=== PATIENT | female | born 1945 | race Caucasian/White ===

== ENCOUNTER 2018-12-26 06:08 | Inpatient (IN) ==
[2018-12-16 13:14] LABS: Appearance,Urine CLEAR; Bacteria,Urine 0 /hpf (0); Bilirubin,Urine NEG (NEG); Color,Urine YELLOW; Culture Indicated,Urine NO; Glucose,Urine (UA) NEGATIVE (NEG); Ketones,Urine NEG (NEG); Leukocyte Esterase,Urine 25 /uL (NEG); Nitrate,Urine NEG (NEG); Protein,Urine NEG (NEG); Specific Gravity,Urine 1.014 (1.000-1.035); Urine Blood 0.03 mg/dL (<0.03); Urine RBC 1 /hpf (0-1); Urine Squamous Epithelial Cell 1 /hpf (0-4); Urine Transitional Epi Cells < 1 /hpf (0-2); Urine WBC 4 /hpf (0-4); Urobilinogen,Urine NEG (NEG)
[2018-12-16 13:38] LABS: INR 1.2 (0.9-1.1); Prothrombin Time 14.8 sec (11.9-14.5)
[2018-12-16 13:41] LABS: Basophils # (Auto) 0 K/mcL (0.0-0.3); Basophils % (Auto) 0.2 % (0.0-2.0); Eosinophils # (Auto) 0.1 K/mcL (0.0-0.7); Eosinophils % (Auto) 2.6 % (0.0-7.0); Granulocytes % (Auto) 67.2 % (38.0-78.0); Hematocrit 43.3 % (36.0-48.0); Hemoglobin 13.7 g/dL (12.0-15.0); Lymphocytes # (Auto) 1.2 K/mcL (1.5-4.8); Mean Cell Volume 86.1 fL (80.0-100.0); Mean Corpuscular HGB Conc 31.6 g/dL (31.0-36.0); Mean Platelet Volume 9.8 fL (7.4-10.4); Monocytes # (Auto) 0.4 K/mcL (0.1-0.9); Platelet Count 197 K/mcL (140-440); RBC 5.04 M/mcL (4.00-5.20); WBC 5.3 K/mcL (4.5-11.0)
[2018-12-16 13:55] LABS: Blood Urea Nitrogen 20 mg/dl (8-23); Calcium 9.5 mg/dl (8.6-10.4); Carbon Dioxide 26 mmol/L (22-30); Chloride 100 mmol/L (96-108); Glomerular Filtration Rate 86; Glucose 112 mg/dL (70-105); Potassium 4.4 mmol/L (3.3-5.1); Sodium 139 mmol/L (133-145)
[~2018-12-26 06:08] MED LIST: 0.9 % SODIUM CHLORIDE 9 ML, KETOROLAC 30 MG, ROPIVACAINE HCL/PF 49.5 ML, EPINEPHrine 0.... IJ SCH; ACETAMINOPHEN 500 MG TABLET PO SCH; CELECOXIB 200 MG CAPSULE PO SCH; PREGABALIN 75 MG CAPSULE PO SCH; ceFAZolin 3 GM in DEXTROSE 5% IN WATER 50 ML IV SCH; oxyCODONE 10 MG TAB.ER.12H PO SCH
[2018-12-26] MEDS ORDERED: SCOPOLAMINE 1 PATCH PATCH TOPICAL ONE (06:50)
[2018-12-26] MEDS ORDERED: GENTAMICIN SULFATE 800 MG/20 ML VIAL IR ONE (07:11)
[2018-12-26] MEDS ORDERED: DEXAMETHASONE 10 MG/ML VIAL IV ONE (07:50)
[2018-12-26] MEDS ORDERED: KETAMINE 10 MG/ML ML IV ONE (07:50)
[2018-12-26] MEDS ORDERED: ONDANSETRON 4 MG/2 ML VIAL IV ONE (07:50)
[2018-12-26] MEDS ORDERED: diphenhydrAMINE 50 MG/ML VIAL IV ONE (07:50)
[2018-12-26] MEDS ORDERED: PROPOFOL 200 MG/20 ML VIAL IV ONE (07:50)
[2018-12-26] MEDS ORDERED: LIDOCAINE HCL/PF 100 MG/5 ML SYRINGE IV ONE (07:50)
[2018-12-26] MEDS ORDERED: MIDAZOLAM 2 MG/2 ML VIAL IV ONE (07:50)
[2018-12-26] MEDS ORDERED: ROPIVACAINE HCL/PF 20 ML VIAL IJ ONE (07:50)
[2018-12-26] MEDS ORDERED: PROMETHAZINE 25 MG/ML VIAL IV PRN (08:51)
[2018-12-26] MEDS ORDERED: IPRATROPIUM/ALBUTEROL 3 ML AMPUL.NEB NEB PRN (08:51)
[2018-12-26] MEDS ORDERED: FLUMAZENIL 0.1 MG/ML ML IV PRN (08:51)
[2018-12-26] MEDS ORDERED: LACTATED RINGERS 250 ML IV PRN (08:51)
[2018-12-26] MEDS ORDERED: ONDANSETRON 4 MG/2 ML VIAL IV PRN ×2 (08:51→09:19)
[2018-12-26] MEDS ORDERED: NALOXONE HCL 0.4 MG/ML VIAL IV PRN (08:51)
[2018-12-26] MEDS ORDERED: diphenhydrAMINE 50 MG/ML VIAL IV PRN (08:51)
[2018-12-26] MEDS ORDERED: HYDROmorphone 2 MG/ML VIAL IV PRN (08:51)
[2018-12-26] MEDS ORDERED: MEPERIDINE 25 MG/ML SYRINGE IV PRN (08:51)
[2018-12-26] MEDS ORDERED: LACTATED RINGERS 1,000 ML IV SCH (09:00)
[2018-12-26] MEDS ORDERED: BISACODYL 10 MG SUPP.RECT PR PRN (09:19)
[2018-12-26] MEDS ORDERED: ACETAMINOPHEN 325 MG TABLET PO PRN (09:19)
[2018-12-26] MEDS ORDERED: POLYETHYLENE GLYCOL 3350 17 GM PACKET PO PRN (09:19)
[2018-12-26] MEDS ORDERED: MAGNESIUM HYDROXIDE 30 ML ORAL.SUSP PO PRN (09:19)
[2018-12-26] MEDS ORDERED: FLEETS ADULT ENEMA PR PRN (09:19)
[2018-12-26] MEDS ORDERED: TRANEXAMIC ACID 1,000 MG/10 ML VIAL IV SCH (09:19)
[2018-12-26] MEDS ORDERED: NON FORMULARY MEDICATION 1 DOSE MISCELL (Aspirin/Acetaminophen/Caffeine [Excedrin Migraine PO PRN (09:23)
--- NOTE | 2018-12-26 09:26 | Brief Operative Note ---
Date of procedure: 12/26/18 Pre-op diagnosis: left knee djd severe Post-op diagnosis: same Procedure: left knee tka Grafts/Implants: Yes Anesthesia: GETA Complications Description: 12/26/18 09:26 none Surgeon: Dragan Chowdhury Director Outcomes: Al Patricia Estimated blood loss (cc): 50 Tourniquet Time (Minutes): 52 Specimens Removed/Pathology: none sent Condition: stable Disposition: PACU
[2018-12-26] MEDS: BENZOCAINE/MENTHOL 1 LOZENGE PO PRN (09:46)
--- NOTE | 2018-12-26 10:09 | XRay Report ---
CLINICAL INFORMATION: Post-Op Total Knee COMPARISON: None. FINDINGS: Total knee prosthesis is anatomically aligned. A few tiny calcific particles in the subpatellar region with a small effusion is noted.. No osseous abnormality. Soft tissue swelling seen - as expected IMPRESSION: Small effusion and a few tiny osseous particles in the subpatellar region of uncertain significance Interpreted and Authenticated by: Sha Lynn 12/26/18
--- NOTE | 2018-12-26 10:30 | Operative Note ---
DATE OF OPERATION: 12/26/2018 PREOPERATIVE DIAGNOSIS: Left knee degenerative arthritis and two of the three compartments was severe. POSTOPERATIVE DIAGNOSIS: Left knee degenerative arthritis and two of the three compartments was severe. PROCEDURE: Left total knee arthroplasty. SURGEON: Dragan Chowdhury M.D. NEONATAL SURGEON: Al Patricia PA-C. The PA's assistance was required for the safe and efficient completion of the entire case. This provider's expertise and technical skill were required throughout the case. The PA assisted with preoperative coordination, intraoperative retraction, wound closure, dressing and splint application, as well as postoperative documentation and care coordination. ANESTHESIA: General LMA anesthesia. COMPLICATIONS: None. IMPLANTS: Implant sizes per nurse's note. TOURNIQUET TIME: Approximately 52 minutes. DESCRIPTION OF PROCEDURE: The patient was brought to the operating room and put to sleep with general LMA anesthesia. Once a timeout was performed, we confirmed the operative site by initials, consent form, and x-ray. Once done, we then confirmed preop antibiotics and tranexamic acid. The patient then had the left leg sterilely draped and prepped with Ioban over the skin. We then made a midline incision. Midvastus approach was performed. A total knee was confirmed as there were two compartments with severe arthritis, patellofemoral and medial compartment. At this point, we proceeded with a total knee arthroplasty. Two pins above and below the knee were placed, center of hip rotation performed. Medial and lateral malleoli, intraarticular pins, and thirty points on the femur and tibia were registered. Once we balanced the knee with the implant, the implants were configured to accommodate her anatomy. Once perfectly aligned, we then brought the robot in, made the bony cuts and removed spurs. We injected the soft tissues and cemented into place the components. This was a size 6 femur, size 5 tibial baseplate with a 9 mm poly insert. A 35 mm oval patella covered her patella the best, and this seemed to fit very nicely. There was no complication. Tourniquet time was 52 minutes. All pins were removed. RBH:kwame Job ID: [id number] Doc ID: [id number] Dragan Chowdhury MD
[2018-12-26] MEDS: 0.45 % SODIUM CHLORIDE 1,000 ML IV SCH ×2 (10:59→21:14)
[2018-12-26] MEDS: KETOROLAC 15 MG/ML VIAL IV SCH ×3 (12:07→23:18)
[2018-12-26] MEDS: HYDROmorphone 2 MG/ML VIAL IV PRN (12:46)
[2018-12-26] MEDS: HYDROcodone/APAP 10/325MG TABLET PO PRN ×2 (12:47→18:31)
[2018-12-26] MEDS: 0.9 % SODIUM CHLORIDE 10 ML SYRINGE IV SCH ×2 (15:47→21:15)
[2018-12-26] MEDS: ceFAZolin 1 GM VIAL IV SCH ×2 (15:47→23:18)
[2018-12-26] MEDS ORDERED: ASPIRIN 81 MG TAB.CHEW PO ONE (18:00)
[2018-12-26] MEDS: NITROFURANTOIN SR 100 MG CAPSULE PO SCH (19:55)
[2018-12-26] MEDS ORDERED: ASPIRIN 325 MG ENTERIC COATED TABLET PO SCH (21:00)
[2018-12-26] MEDS ORDERED: TEMAZEPAM 15 MG CAPSULE PO PRN (21:00)
[2018-12-26] MEDS ORDERED: DULoxetine 30 MG CAPSULE PO SCH (21:00)
[2018-12-26] MEDS ORDERED: SENNOSIDES 1 TABLET PO SCH (21:00)
[2018-12-26] MEDS: DOCUSATE SODIUM 100 MG CAPSULE PO SCH (21:14)
[2018-12-26] MEDS: METHIMAZOLE 5 MG TABLET PO SCH (21:46)
[2018-12-27] MEDS: HYDROcodone/APAP 10/325MG TABLET PO PRN ×5 (00:01→16:03)
[2018-12-27] MEDS: HYDROmorphone 2 MG/ML VIAL IV PRN ×2 (03:16→04:52)
[2018-12-27] MEDS: 0.45 % SODIUM CHLORIDE 1,000 ML IV SCH (05:25)
[2018-12-27] MEDS: KETOROLAC 15 MG/ML VIAL IV SCH ×2 (05:28→12:01)
[2018-12-27] MEDS: 0.9 % SODIUM CHLORIDE 10 ML SYRINGE IV SCH ×2 (05:29→14:02)
--- NOTE | 2018-12-27 07:35 | Orthopedic Progress Note ---
Subjective Patient information: Note initiated : 12/27/18 at 7:34 am Service Date, if different from initiated Date: [] Patient: Ana Laura Herron 73 y/o F admitted on 12/26/18 for Left Walter Medial Uni Knee. Chief Complaint: [] Pt is stable this morning on post operative day 1 without any significant concerns or complaints. Patients vital signs have remained stable. Patients dressing is dry and is grossly intact from a neurovascular and motor standpoint. Patients 10 point ROS is otherwise negative. Objective Vital signs: Vital Signs Temp Pulse Resp BP BP Pulse Ox 12/27/18 03:34 98.3 F 76 18 98/53 94 12/27/18 00:26 91 12/26/18 23:08 98.4 F 79 18 102/62 94 12/26/18 21:00 93 12/26/18 19:34 97.1 F 99 H 18 121/70 93 12/26/18 17:00 95 12/26/18 13:20 94 12/26/18 12:12 109/57 93 12/26/18 11:41 122/71 93 12/26/18 11:11 109/63 92 12/26/18 10:56 116/69 92 12/26/18 10:42 113/66 91 12/26/18 10:27 132/74 96 12/26/18 10:11 97.8 F 133/75 96 12/26/18 10:10 92 12/26/18 09:59 98.3 F 82 17 148/78 99 12/26/18 09:48 82 18 140/77 92 12/26/18 09:38 81 18 140/77 97 12/26/18 09:33 89 17 145/70 90 12/26/18 09:28 91 H 17 145/70 96 12/26/18 09:23 98.7 F 92 H 19 157/88 95 12/26/18 09:20 93 Intake and Output 12/26/18 12/27/18 12/27/18 21:59 05:59 13:59 Intake Total 1845 1000 Output Total 2300 1900 Balance -455 -900 Intake: IV 655 Sodium Chloride 0.45% 1,000 ml 655 @ 100 mls/hr IV .Q10H [facility] Rx#: [id number] Oral 1190 1000 Output: Urine Catheter Amount 1000 Straight 1000 Void Amount 1300 1900 Other: Meal Dinner Percent of Meal Consumed 100% Feeding Ability Independent Urine Appearance Clear Straight Clear Urine Color Bright Yellow Bright Yellow Straight Pale Urine Odor Normal Normal Weight 273 lb Intake & Output: Intake & Output 12/26/18 12/27/18 12/27/18 21:59 05:59 13:59 Intake Total 1845 1000 Output Total 2300 1900 Balance -455 -900 Weight 273 lb Intake: IV 655 Sodium Chloride 0.45% 1,000 ml 655 @ 100 mls/hr IV .Q10H [facility] Rx#: [id number] Oral 1190 1000 Output: Urine Catheter Amount 1000 Straight 1000 Void Amount 1300 1900 Other: Meal Dinner Percent of Meal Consumed 100% Feeding Ability Independent Urine Appearance Clear Straight Clear Urine Color Bright Yellow Bright Yellow Straight Pale Urine Odor Normal Normal Incision: Yes healing Incision clean and dry: Yes Dressing: Yes clean Weight bearing status: full Neurological exam IM: Yes oriented X3, Yes motor sensory intact, Yes neurovascular intact Extremities exam IM: Yes Foot pink and warm, Yes neurovascular intact - Labs CBC & BMP: 12/27/18 04:21 12/16/18 11:36 Labs: Orthopedic Labs 12/16/18 11:36 PT 14.8 H INR 1.2 H APTT 38 H 12/27/18 12/16/18 04:21 11:36 Hgb 13.7 Hct 34.2 L 43.3 Assessment and Plan (1) Hx of total knee arthroplasty The patient has been educated regarding dressing care, Physical Therapy recommendations, home exercises, restrictions, and follow up appointments. The patient has had all necessary DME prescribed. The patient has remained relatively stable during their hospital course. Status: Acute
--- NOTE | 2018-12-27 07:38 | Discharge Summary ---
Ortho Discharge - TKA - Patient Instructions Diet: Regular Diet Activity: activity as tolerated, weight bearing as tolerated Total Knee Protocol: For Total Knee: Start ROM BERNIE with stationary bike or rocking chair. Work on gaining full extension of knee. Posterior dislocation precautions provided. Hip abductor strengthening and gait training instructions provided. Apply Cryocuff as instructed. Dressing Care: May shower in 2 days, Aquacel Ag - leave on for 5 days - Problem Maintenance (1) Hx of total knee arthroplasty Status: Acute - Follow Up Plan Follow Up Appointments: Dragan Chowdhury MD [Physician] - 01/10/19 9:20 am Disposition: Home, Self-Care Prognosis: Good Rehab Potential: Good I certify that the patient requires SNF services: No Overall status at discharge: patient is progressing back to baseline - Orders For Discharge Prescriptions: Docusate Sodium [Colace] 100 mg PO BID #60 cap HYDROcodone/APAP 10/325MG [[place] 10-325Mg] 1 - 2 tab PO Q4HP PRN #75 tab PRN Reason: Pain Level 3-6
[2018-12-27] MEDS: DOCUSATE SODIUM 100 MG CAPSULE PO SCH (08:33)
[2018-12-27] MEDS: NITROFURANTOIN SR 100 MG CAPSULE PO SCH (08:35)
[2018-12-27] MEDS ORDERED: METOPROLOL SUCCINATE 25 MG TAB.XL.24H PO SCH (09:00)
[2018-12-27] MEDS ORDERED: MULTIVIT,THER IRON,CA,FA & MIN 1 TABLET PO SCH (09:00)
[2018-12-27] MEDS: METHIMAZOLE 5 MG TABLET PO SCH (09:41)
[2018-12-27] MEDS: BENZOCAINE/MENTHOL 1 LOZENGE PO PRN ×3 (11:00→16:03)
[2018-12-27] MEDS ORDERED: APIXABAN 5 MG TABLET PO SCH (21:00)
== END 2018-12-27 16:15 | disposition home or self-care (01) | DRG 470 ==
LOC: SUR 06:08 → MEDSUR 10:10
PROVIDERS: ADMIT Orthopaedic Surgery; ATTEND Orthopaedic Surgery

== ENCOUNTER 2023-07-31 23:31 | Inpatient (IN) ==
[2023-07-31] MEDS ORDERED: IOPAMIDOL 100 ML BOTTLE IV ONE ×2 (23:32)
[2023-07-31] MEDS ORDERED: DEXAMETHASONE 10 MG/ML VIAL IV ONE (23:37)
[2023-08-01] MEDS ORDERED: IPRATROPIUM/ALBUTEROL 3 ML AMPUL.NEB NEB ONE (00:30)
[2023-08-01 00:37] LABS: Basophils # (Auto) 0.01 K/mcL (0.00-0.30); Basophils % (Auto) 0.2 % (0.0-2.0); Eosinophils # (Auto) 0.12 K/mcL (0.00-0.70); Eosinophils % (Auto) 2.8 % (0.0-7.0); Hematocrit 48.6 % (34.1-44.9); Lymphocytes # (Auto) 1.33 K/mcL (1.50-4.80); Lymphocytes % (Auto) 30.6 % (15.5-49.0); Mean Corpuscular HGB Conc 30.9 g/dL (31.0-36.0); Mean Platelet Volume 10.1 fL (8.8-12.5); Monocytes # (Auto) 0.33 K/mcL (0.10-0.90); Monocytes % (Auto) 7.6 % (1.0-12.0); Neutrophils % (Auto) 58.6 % (38.0-78.0); Platelet Count 153 K/mcL (140-440); RBC 5.28 M/mcL (3.59-5.38); Red Cell Distribution Width 13.1 % (11.5-14.5); WBC 4.4 K/mcL (4.5-11.0)
[2023-08-01 01:10] LABS: proBNP 73.1 pg/mL (<450.0)
[2023-08-01] MEDS ORDERED: ALBUTEROL SULFATE 2.5 MG/3 ML NEBULIZER NEB ONE (01:16)
[2023-08-01] MEDS ORDERED: ACETAMINOPHEN 325 MG TABLET PO ONE (01:26)
[2023-08-01 10:07] LABS: ALT/SGPT < 5 U/L (<40); AST/SGOT 19 U/L (<32); Albumin 4.2 gm/dL (3.2-5.2); Albumin/Globulin Ratio 1.3 (1.0-2.3); Alkaline Phosphatase 100 U/L (39-117); Bilirubin,Direct < 0.2 mg/dL (0-0.3); Bilirubin,Total 0.3 mg/dL (0.1-1.0); Blood Urea Nitrogen 18 mg/dL (8-23); Calcium 9.1 mg/dL (8.6-10.4); Carbon Dioxide 25 mmol/L (22-30); Chloride 102 mmol/L (96-108); Globulin 3.3 gm/dL (2.2-3.7); Glomerular Filtration Rate 83; Glucose 291 mg/dL (70-105); Lactate Dehydrogenase 144 U/L (135-225); Phosphorous 3.1 mg/dL (2.5-4.5); Triglycerides 80 mg/dL (<150); Uric Acid 5.6 mg/dL (2.5-8.0)
[2023-08-01 10:07] LABS: C-Reactive Protein 0.99 mg/dL (0.03-0.80)
[2023-08-01] MEDS ORDERED: IPRATROPIUM/ALBUTEROL 3 ML AMPUL.NEB NEB PRN (10:29)
[2023-08-01] MEDS ORDERED: DEXTROSE 50% 50 ML VIAL IV PRN (10:29)
[2023-08-01] MEDS ORDERED: POLYETHYLENE GLYCOL 3350 17 GM PACKET PO PRN (10:29)
[2023-08-01] MEDS ORDERED: SENNOSIDES 1 TABLET PO PRN (10:29)
[2023-08-01] MEDS ORDERED: MAGNESIUM SULFATE 2 GM/50 ML BAG IV PRN (10:29)
[2023-08-01] MEDS ORDERED: ONDANSETRON 4 MG/2 ML VIAL IV PRN (10:29)
[2023-08-01] MEDS ORDERED: DEXTROSE 31 GM ORAL.SUSP PO PRN (10:29)
[2023-08-01] MEDS ORDERED: POTASSIUM CHLORIDE 40 MEQ in DEXTROSE 5% IN WATER 500 ML IV PRN (10:29)
[2023-08-01] MEDS ORDERED: ACETAMINOPHEN 325 MG TABLET PO PRN (10:29)
[2023-08-01] MEDS ORDERED: POTASSIUM CHLORIDE 20 MEQ TABLET PO PRN ×2 (10:29)
[2023-08-01] MEDS ORDERED: ASPIRIN ACETAMINOPHEN CAFFEINE PO PRN (10:38)
[2023-08-01] MEDS: BUDESONIDE 0.5 MG/2 ML AMPUL.NEB NEB SCH ×2 (10:54→19:17)
[2023-08-01] MEDS: IPRATROPIUM/ALBUTEROL 3 ML AMPUL.NEB NEB SCH ×2 (10:54→19:17)
[2023-08-01 11:12] LABS: Band Neutrophils % 3 % (0-10); Lymphocytes % 12 % (15-49); Monocytes % (Manual) 3 % (1-12); Platelet Estimate INCREASED (Normal); RBC Morphology NORMAL (Normal); Reactive Lymphocytes 5 % (0-2); Segmented Neutrophils % 77 % (38-78)
[2023-08-01] MEDS: AZITHROMYCIN 250 MG TABLET PO SCH (11:13)
[2023-08-01] MEDS: INSULIN LISPRO 1 UNIT/0.01 ML UNIT SQ SCH ×3 (11:26→21:33)
[2023-08-01 11:36] LABS: Hemoglobin A1C 7.3 % Hgb (4.0-6.0)
[2023-08-01] MEDS: 0.9 % SODIUM CHLORIDE 10 ML SYRINGE IV SCH ×2 (13:09→21:35)
[2023-08-01] MEDS ORDERED: methylPREDNISolone SOD SUCC 125 MG/2 ML VIAL IV SCH (14:00)
[2023-08-01] MEDS: HYDROcodone/APAP 10/325MG TABLET PO SCH ×2 (15:52→21:33)
[2023-08-01] MEDS: ENOXAPARIN 40 MG/0.4 ML SYRINGE SQ SCH (21:33)
[2023-08-01] MEDS: DOCUSATE SODIUM 100 MG CAPSULE PO SCH (21:33)
[2023-08-01] MEDS: METHIMAZOLE 10 MG TABLET PO SCH (21:34)
[2023-08-01] MEDS ORDERED: predniSONE 20 MG TABLET ONE (22:03)
[2023-08-01] MEDS: predniSONE 20 MG TABLET PO SCH (22:15)
[2023-08-02] MEDS: IPRATROPIUM/ALBUTEROL 3 ML AMPUL.NEB NEB SCH ×4 (01:49→18:59)
[2023-08-02] MEDS: 0.9 % SODIUM CHLORIDE 10 ML SYRINGE IV SCH ×3 (05:40→21:17)
[2023-08-02 06:53] LABS: ALT/SGPT < 5 U/L (<40); AST/SGOT 25 U/L (<32); Albumin 3.8 gm/dL (3.2-5.2); Albumin/Globulin Ratio 1.4 (1.0-2.3); Alkaline Phosphatase 85 U/L (39-117); Bilirubin,Direct < 0.2 mg/dL (0-0.3); Bilirubin,Total 0.4 mg/dL (0.1-1.0); Blood Urea Nitrogen 20 mg/dL (8-23); Carbon Dioxide 21 mmol/L (22-30); Chloride 105 mmol/L (96-108); Globulin 2.8 gm/dL (2.2-3.7); Glomerular Filtration Rate 87; Glucose 205 mg/dL (70-105); Lactate Dehydrogenase 238 U/L (135-225); Triglycerides 124 mg/dL (<150); Uric Acid 5.1 mg/dL (2.5-8.0)
[2023-08-02 07:22] LABS: Basophils # (Auto) 0 K/mcL (0.00-0.30); Basophils % (Auto) 0 % (0.0-2.0); Eosinophils # (Auto) 0 K/mcL (0.00-0.70); Eosinophils % (Auto) 0 % (0.0-7.0); Hemoglobin 13.6 g/dL (11.2-15.7); Lymphocytes # (Auto) 0.74 K/mcL (1.50-4.80); Mean Cell Volume 92.4 fL (80.0-100.0); Mean Corpuscular HGB Conc 30.9 g/dL (31.0-36.0); Mean Platelet Volume 10.5 fL (8.8-12.5); Monocytes # (Auto) 0.25 K/mcL (0.10-0.90); Neutrophils % (Auto) 72.1 % (38.0-78.0); Platelet Count 157 K/mcL (140-440); RBC 4.76 M/mcL (3.59-5.38); Red Cell Distribution Width 12.9 % (11.5-14.5); WBC 3.6 K/mcL (4.5-11.0)
[2023-08-02] MEDS: BUDESONIDE 0.5 MG/2 ML AMPUL.NEB NEB SCH ×2 (07:35→19:00)
[2023-08-02 07:43] LABS: Lymphocytes % (Auto) 20.6 % (15.5-49.0)
[2023-08-02] MEDS: INSULIN LISPRO 1 UNIT/0.01 ML UNIT SQ SCH ×4 (08:08→21:16)
[2023-08-02] MEDS: predniSONE 20 MG TABLET PO SCH ×3 (08:17→22:14)
[2023-08-02] MEDS ORDERED: ASPIRIN ACETAMINOPHEN CAFFEINE PO PRN (09:45)
[2023-08-02] MEDS ORDERED: PNEUMOCOCCAL 23-VAL P-SAC VAC 0.5 ML SYRINGE IM ONE ×2 (10:00→10:15)
[2023-08-02] MEDS ORDERED: FLUZONE HD QS2023-24/PF 240 MCG/0.7 ML SYRINGE IM ONE (10:00)
[2023-08-02] MEDS: ENOXAPARIN 40 MG/0.4 ML SYRINGE SQ SCH ×2 (10:06→21:16)
[2023-08-02] MEDS: METOPROLOL SUCCINATE 25 MG TAB.XL.24H PO SCH (10:06)
[2023-08-02] MEDS: DULoxetine 30 MG CAPSULE PO SCH (10:06)
[2023-08-02] MEDS: DOCUSATE SODIUM 100 MG CAPSULE PO SCH ×2 (10:06→21:16)
[2023-08-02] MEDS: HYDROcodone/APAP 10/325MG TABLET PO SCH ×3 (10:07→21:16)
[2023-08-02] MEDS: AZITHROMYCIN 250 MG TABLET PO SCH (10:07)
[2023-08-02] MEDS: METHIMAZOLE 10 MG TABLET PO SCH ×2 (10:57→21:17)
[2023-08-03] MEDS: 0.9 % SODIUM CHLORIDE 10 ML SYRINGE IV SCH ×2 (05:09→12:55)
[2023-08-03] MEDS: predniSONE 20 MG TABLET PO SCH (05:11)
[2023-08-03 07:29] LABS: Blood Urea Nitrogen 25 mg/dL (8-23); Calcium 8.8 mg/dL (8.6-10.4); Carbon Dioxide 24 mmol/L (22-30); Chloride 106 mmol/L (96-108); Glomerular Filtration Rate 83; Glucose 198 mg/dL (70-105)
[2023-08-03] MEDS: INSULIN LISPRO 1 UNIT/0.01 ML UNIT SQ SCH ×2 (07:37→11:50)
[2023-08-03] MEDS: BUDESONIDE 0.5 MG/2 ML AMPUL.NEB NEB SCH (08:00)
[2023-08-03] MEDS: AZITHROMYCIN 250 MG TABLET PO SCH (08:16)
[2023-08-03] MEDS: METOPROLOL SUCCINATE 25 MG TAB.XL.24H PO SCH (08:16)
[2023-08-03] MEDS: DOCUSATE SODIUM 100 MG CAPSULE PO SCH (08:16)
[2023-08-03] MEDS: HYDROcodone/APAP 10/325MG TABLET PO SCH (08:16)
[2023-08-03] MEDS: DULoxetine 30 MG CAPSULE PO SCH (08:16)
[2023-08-03] MEDS: ENOXAPARIN 40 MG/0.4 ML SYRINGE SQ SCH (08:16)
[2023-08-03] MEDS: METHIMAZOLE 10 MG TABLET PO SCH (08:17)
[2023-08-03] MEDS ORDERED: predniSONE 20 MG TABLET PO SCH (17:30)
== END 2023-08-03 14:09 | disposition home or self-care (01) | DRG 189 ==
LOC: ED 23:31 → MEDSUR 08-01 05:20
PROVIDERS: ADMIT Internal Medicine; ATTEND Internal Medicine

== ENCOUNTER 2024-10-02 05:33 | Observation (INO) ==
[2024-10-02] MEDS: methylPREDNISolone SOD SUCC 125 MG/2 ML VIAL IV ONE (05:59)
[2024-10-02] MEDS: IPRATROPIUM/ALBUTEROL 3 ML AMPUL.NEB NEB ONE ×2 (06:10→11:00)
[2024-10-02 06:11] LABS: Basophils # (Auto) 0.01 K/mcL (0.00-0.30); Basophils % (Auto) 0.1 % (0.0-2.0); Eosinophils # (Auto) 0.14 K/mcL (0.00-0.70); Eosinophils % (Auto) 1.9 % (0.0-7.0); Hematocrit 46.1 % (34.1-44.9); Hemoglobin 13.9 g/dL (11.2-15.7); Lymphocytes # (Auto) 1.02 K/mcL (1.50-4.80); Lymphocytes % (Auto) 13.9 % (15.5-49.0); Mean Cell Volume 93.7 fL (80.0-100.0); Mean Corpuscular HGB Conc 30.2 g/dL (31.0-36.0); Mean Platelet Volume 10.5 fL (8.8-12.5); Monocytes # (Auto) 0.47 K/mcL (0.10-0.90); Monocytes % (Auto) 6.4 % (1.0-12.0); Neutrophils % (Auto) 77.4 % (38.0-78.0); Platelet Count 172 K/mcL (140-440); RBC 4.92 M/mcL (3.59-5.38); Red Cell Distribution Width 13.2 % (11.5-14.5); WBC 7.3 K/mcL (4.5-11.0)
[2024-10-02 06:35] LABS: Blood Urea Nitrogen 30 mg/dL (8-23); Calcium 9.4 mg/dL (8.6-10.4); Carbon Dioxide 26 mmol/L (22-30); Chloride 101 mmol/L (96-108); Glomerular Filtration Rate 82; Glucose 207 mg/dL (70-105); Potassium 4.1 mmol/L (3.3-5.1); Sodium 139 mmol/L (133-145); proBNP 90.9 pg/mL (<450.0)
[2024-10-02 06:47] LABS: Prothrombin Time 13.6 sec (11.9-14.5)
[2024-10-02] MEDS: FUROSEMIDE 40 MG/4 ML VIAL IV ONE (07:22)
[2024-10-02] MEDS: FUROSEMIDE 20 MG/2 ML VIAL IV ONE (07:22)
[2024-10-02] MEDS ORDERED: DEXTROSE 31 GM ORAL.SUSP PO PRN (13:33)
[2024-10-02] MEDS ORDERED: IPRATROPIUM/ALBUTEROL 3 ML AMPUL.NEB NEB PRN (13:33)
[2024-10-02] MEDS ORDERED: DEXTROSE 50% 50 ML VIAL IV PRN (13:33)
[2024-10-02] MEDS ORDERED: ACETAMINOPHEN 325 MG TABLET PO PRN (13:33)
[2024-10-02] MEDS ORDERED: ONDANSETRON 4 MG/2 ML VIAL IV PRN (13:33)
[2024-10-02] MEDS: HYDROcodone/APAP 10/325MG TABLET PO PRN (14:43)
[2024-10-02] MEDS: 0.9 % SODIUM CHLORIDE 10 ML SYRINGE IV SCH (14:45)
[2024-10-02] MEDS: FUROSEMIDE 40 MG/4 ML VIAL IV SCH (17:28)
[2024-10-02] MEDS: INSULIN LISPRO 1 UNIT/0.01 ML UNIT SQ SCH (17:34)
[2024-10-02] MEDS: DOCUSATE SODIUM 100 MG CAPSULE PO SCH (21:50)
[2024-10-02] MEDS: SENNOSIDES 1 TABLET PO SCH (21:50)
[2024-10-03 06:34] LABS: ALT/SGPT 11 U/L (<40); AST/SGOT 17 U/L (<32); Albumin 3.9 gm/dL (3.2-5.2); Albumin/Globulin Ratio 1.2 (1.0-2.3); Alkaline Phosphatase 94 U/L (39-117); Bilirubin,Direct 0.2 mg/dL (<0.3); Bilirubin,Total 0.5 mg/dL (0.1-1.0); Blood Urea Nitrogen 26 mg/dL (8-23); Calcium 9.1 mg/dL (8.6-10.4); Carbon Dioxide 29 mmol/L (22-30); Chloride 101 mmol/L (96-108); Globulin 3.2 gm/dL (2.2-3.7); Glomerular Filtration Rate 82; Glucose 185 mg/dL (70-105); Lactate Dehydrogenase 119 U/L (135-225); Phosphorous 3.9 mg/dL (2.5-4.5); Potassium 4.1 mmol/L (3.3-5.1); Sodium 139 mmol/L (133-145); Triglycerides 104 mg/dL (<150); Uric Acid 7.1 mg/dL (2.5-8.0)
[2024-10-03 08:20] LABS: Estimated Average Glucose(eAG) 192 mg/dL; Hemoglobin A1C 8.3 % Hgb (4.0-6.0)
[2024-10-03] MEDS ORDERED: METHIMAZOLE 5 MG TABLET PO SCH (09:00)
[2024-10-03] MEDS: FUROSEMIDE 40 MG/4 ML VIAL IV ONE (09:29)
[2024-10-03 12:05] VITALS: TEMP 98.2; O2SAT 92
[2024-10-03] MEDS ORDERED: METOPROLOL SUCCINATE 25 MG TAB.XL.24H PO SCH (21:00)
[2024-10-03] MEDS ORDERED: ENOXAPARIN 40 MG/0.4 ML SYRINGE SQ SCH (21:00)
[2024-10-03] MEDS ORDERED: DULoxetine 30 MG CAPSULE PO SCH (21:00)
== END 2024-10-03 15:07 | disposition home or self-care (01) ==
LOC: ED 05:33 → MEDSUR 05:33
PROVIDERS: ADMIT Internal Medicine; ATTEND Internal Medicine

== ENCOUNTER 2024-11-08 18:08 | Inpatient (IN) ==
[2024-11-08] MEDS: methylPREDNISolone SOD SUCC 125 MG/2 ML VIAL IV ONE (18:48)
[2024-11-08] MEDS: IPRATROPIUM/ALBUTEROL 3 ML AMPUL.NEB NEB ONE ×2 (19:05→22:54)
[2024-11-08 19:10] LABS: Basophils # (Auto) 0.01 K/mcL (0.00-0.30); Basophils % (Auto) 0.1 % (0.0-2.0); Eosinophils # (Auto) 0.04 K/mcL (0.00-0.70); Eosinophils % (Auto) 0.5 % (0.0-7.0); Hematocrit 47.4 % (34.1-44.9); Hemoglobin 14.5 g/dL (11.2-15.7); Lymphocytes # (Auto) 0.92 K/mcL (1.50-4.80); Lymphocytes % (Auto) 11.1 % (15.5-49.0); Mean Cell Volume 92.8 fL (80.0-100.0); Mean Corpuscular HGB Conc 30.6 g/dL (31.0-36.0); Mean Platelet Volume 10.8 fL (8.8-12.5); Monocytes # (Auto) 0.84 K/mcL (0.10-0.90); Monocytes % (Auto) 10.1 % (1.0-12.0); Neutrophils % (Auto) 78.1 % (38.0-78.0); Platelet Count 191 K/mcL (140-440); RBC 5.11 M/mcL (3.59-5.38); Red Cell Distribution Width 13.2 % (11.5-14.5); WBC 8.3 K/mcL (4.5-11.0)
[2024-11-08 19:34] LABS: Blood Urea Nitrogen 27 mg/dL (8-23); Calcium 9.5 mg/dL (8.6-10.4); Carbon Dioxide 23 mmol/L (22-30); Chloride 102 mmol/L (96-108); Glomerular Filtration Rate 60; Glucose 184 mg/dL (70-105); Potassium 3.9 mmol/L (3.3-5.1); Sodium 142 mmol/L (133-145)
[2024-11-08] MEDS: FUROSEMIDE 40 MG/4 ML VIAL IV ONE (19:38)
[2024-11-08] MEDS: LORazepam 0.5 MG TABLET PO ONE (20:37)
[2024-11-08] MEDS ORDERED: MAGNESIUM SULFATE 2 GM/50 ML BAG IV PRN (21:43)
[2024-11-08] MEDS ORDERED: POTASSIUM CHLORIDE 40 MEQ in DEXTROSE 5% IN WATER 500 ML IV PRN (21:43)
[2024-11-08] MEDS ORDERED: POTASSIUM CHLORIDE 20 MEQ TABLET PO PRN ×2 (21:43)
[2024-11-08] MEDS ORDERED: ONDANSETRON 4 MG/2 ML VIAL IV PRN (21:43)
[2024-11-08] MEDS ORDERED: METOCLOPRAMIDE 10 MG/2 ML VIAL IV PRN (21:43)
[2024-11-08] MEDS ORDERED: POLYETHYLENE GLYCOL 3350 17 GM PACKET PO PRN (21:43)
[2024-11-08] MEDS ORDERED: DEXTROSE 50% 50 ML VIAL IV PRN (21:43)
[2024-11-08] MEDS ORDERED: DEXTROSE 31 GM ORAL.SUSP PO PRN (21:43)
[2024-11-08] MEDS ORDERED: SENNOSIDES 1 TABLET PO PRN (21:43)
[2024-11-08] MEDS: DOCUSATE SODIUM 100 MG CAPSULE PO SCH (22:08)
[2024-11-08] MEDS: INSULIN LISPRO 1 UNIT/0.01 ML UNIT SQ SCH (22:24)
[2024-11-08] MEDS: IPRATROPIUM/ALBUTEROL 3 ML AMPUL.NEB NEB SCH (22:35)
[2024-11-08] MEDS: BUDESONIDE 0.5 MG/2 ML AMPUL.NEB NEB SCH (22:35)
[2024-11-08] MEDS: INSULIN LISPRO 1 UNIT/0.01 ML UNIT SQ ONE (22:40)
[2024-11-08] MEDS: cefTRIAXone 1 GM VIAL IV SCH (22:53)
[2024-11-08] MEDS: methylPREDNISolone SOD SUCC 125 MG/2 ML VIAL IV SCH (22:53)
[2024-11-08] MEDS: ENOXAPARIN 40 MG/0.4 ML SYRINGE SQ SCH (22:54)
[2024-11-08] MEDS: 0.9 % SODIUM CHLORIDE 10 ML SYRINGE IV SCH (22:54)
[2024-11-08] MEDS: BUDESONIDE 0.5 MG/2 ML AMPUL.NEB ONE (22:54)
[2024-11-08] MEDS: methylPREDNISolone SOD SUCC 125 MG/2 ML VIAL ONE (22:55)
[2024-11-08] MEDS: cefTRIAXone 1 GM VIAL ONE (22:55)
[2024-11-08] MEDS: ENOXAPARIN 40 MG/0.4 ML SYRINGE ONE (22:55)
[2024-11-09] MEDS: ACETAMINOPHEN 325 MG TABLET PO PRN (01:15)
[2024-11-09] MEDS: ACETAMINOPHEN 325 MG TABLET PO ONE (02:02)
[2024-11-09] MEDS: IPRATROPIUM/ALBUTEROL 3 ML AMPUL.NEB NEB ONE (03:12)
[2024-11-09] MEDS: methylPREDNISolone SOD SUCC 125 MG/2 ML VIAL ONE (04:32)
[2024-11-09 06:15] LABS: ALT/SGPT 17 U/L (<40); AST/SGOT 22 U/L (<32); Albumin 3.8 gm/dL (3.2-5.2); Albumin/Globulin Ratio 1.2 (1.0-2.3); Alkaline Phosphatase 91 U/L (39-117); Bilirubin,Direct < 0.2 mg/dL (0-0.3); Bilirubin,Total 0.2 mg/dL (0.1-1.0); Blood Urea Nitrogen 28 mg/dL (8-23); Calcium 8.8 mg/dL (8.6-10.4); Carbon Dioxide 24 mmol/L (22-30); Chloride 101 mmol/L (96-108); Globulin 3.1 gm/dL (2.2-3.7); Glomerular Filtration Rate 60; Glucose 346 mg/dL (70-105); Lactate Dehydrogenase 155 U/L (135-225); Phosphorous 3.9 mg/dL (2.5-4.5); Potassium 4.8 mmol/L (3.3-5.1); Sodium 138 mmol/L (133-145); Triglycerides 106 mg/dL (<150); Uric Acid 6.2 mg/dL (2.5-8.0)
[2024-11-09] MEDS ORDERED: ASPIRIN ACETAMINOPHEN CAFFEINE PO PRN (07:46)
[2024-11-09] MEDS ORDERED: NON FORMULARY MEDICATION 1 DOSE MISCELL (Duloxetine 60 mg capsule,delayed release(DR/EC)) PO SCH (09:00)
[2024-11-09] MEDS: 0.9 % SODIUM CHLORIDE 500 ML IV SCH (10:15)
[2024-11-09] MEDS: METOPROLOL SUCCINATE 25 MG TAB.XL.24H PO SCH (20:41)
[2024-11-09] MEDS: HYDROcodone/APAP 10/325MG TABLET PO PRN (20:41)
[2024-11-09] MEDS: DULoxetine 30 MG CAPSULE PO SCH (20:41)
[2024-11-09] MEDS: METHIMAZOLE 5 MG TABLET PO SCH (20:44)
[2024-11-10 07:20] LABS: Blood Urea Nitrogen 23 mg/dL (8-23); Calcium 8.9 mg/dL (8.6-10.4); Carbon Dioxide 27 mmol/L (22-30); Chloride 103 mmol/L (96-108); Glomerular Filtration Rate 86; Glucose 195 mg/dL (70-105); Potassium 5.2 mmol/L (3.3-5.1); Sodium 140 mmol/L (133-145)
[2024-11-10] MEDS: FUROSEMIDE 40 MG TABLET PO SCH (08:14)
[2024-11-10] MEDS: INSULIN GLARGINE, HUMAN 1 UNIT/0.01 ML SQ SCH (08:21)
[2024-11-10] MEDS: SODIUM ZIRCONIUM CYCLOSILICATE 5 GM PACKET PO SCH (08:24)
[2024-11-10] MEDS: IPRATROPIUM/ALBUTEROL 3 ML AMPUL.NEB NEB PRN (08:47)
[2024-11-10] MEDS: methylPREDNISolone SOD SUCC 125 MG/2 ML VIAL IV SCH (20:30)
[2024-11-11 06:28] LABS: Blood Urea Nitrogen 27 mg/dL (8-23); Calcium 8.6 mg/dL (8.6-10.4); Carbon Dioxide 32 mmol/L (22-30); Chloride 101 mmol/L (96-108); Glomerular Filtration Rate 82; Glucose 257 mg/dL (70-105); Potassium 5.8 mmol/L (3.3-5.1); Sodium 139 mmol/L (133-145)
[2024-11-11 06:55] LABS: Basophils # (Auto) 0 K/mcL (0.00-0.30); Basophils % (Auto) 0 % (0.0-2.0); Eosinophils # (Auto) 0 K/mcL (0.00-0.70); Eosinophils % (Auto) 0 % (0.0-7.0); Hematocrit 46.5 % (34.1-44.9); Hemoglobin 14.1 g/dL (11.2-15.7); Lymphocytes # (Auto) 0.73 K/mcL (1.50-4.80); Lymphocytes % (Auto) 14.1 % (15.5-49.0); Mean Cell Volume 94.5 fL (80.0-100.0); Mean Corpuscular HGB Conc 30.3 g/dL (31.0-36.0); Mean Platelet Volume 10.7 fL (8.8-12.5); Monocytes # (Auto) 0.19 K/mcL (0.10-0.90); Monocytes % (Auto) 3.7 % (1.0-12.0); Platelet Count 176 K/mcL (140-440); RBC 4.92 M/mcL (3.59-5.38); WBC 5.2 K/mcL (4.5-11.0)
[2024-11-11 12:08] VITALS: TEMP 97.7; O2SAT 93
== END 2024-11-11 13:52 | disposition home or self-care (01) | DRG 190 ==
LOC: ED 18:08 → MEDSUR 21:33
PROVIDERS: ADMIT Internal Medicine; ATTEND Internal Medicine